=== PATIENT | female | born 1955 | race Caucasian/White ===

== ENCOUNTER → 2019-12-28 | Outpatient (CLI) | payer OTHER ==
--- NOTE | 2019-12-30 14:27 | Diagnostic Imaging Report ---
INDICATION: Routine screening. Comparison is made with prior mammogram from 09/30/2017. 2-D and 3-D bilateral screening mammography was performed with CAD. Scattered fibroglandular densities are identified bilaterally. A lobulated density in the central right breast has increased in size since prior exam. There is an adjacent biopsy marker. The left breast is unremarkable. Axillae are unremarkable. IMPRESSION: BI-RADS 0 Enlarging lobulated nodule in the central right breast. Additional views and ultrasound are recommended for further evaluation. ACR BI-RADS Category 0: Incomplete. (Needs additional imaging evaluation). Result letter will be mailed to the patient. Note: At least 10% of breast cancer is not imaged by mammography. Dictated by: Dictated on workstation # [id number]
== END ==
LOC: RAD 10:01
PROVIDERS: ATTEND Nurse Practitioner Family
DX: Z12.31 Encounter for screening mammogram for malignant neoplasm of breast (principal)
CPT/HCPCS: 77063; 77067

== ENCOUNTER → 2020-01-11 | Outpatient (CLI) | payer OTHER ==
--- NOTE | 2020-01-11 12:51 | Diagnostic Imaging Report ---
INDICATION: Right breast density. Correlation made with recent screening study from 12/28/2019 and 09/30/2017. Unilateral right 2-D and 3-D diagnostic mammography was performed including spot compression CC and ML views as well as conventional 90 degree lateral views. There is a persistent lobulated circumscribed mass in the lower and slightly outer right breast 5-6 cm from the nipple. There is an adjacent biopsy clip. No suspicious calcifications are seen. IMPRESSION: BI-RADS 0 Lobulated enlarging nodule lower slightly outer right breast at mid depth. Further evaluation with ultrasound is recommended and will be performed today. ACR BI-RADS Category 0: Incomplete. (Needs additional imaging evaluation). Result letter will be mailed to the patient. Note: At least 10% of breast cancer is not imaged by mammography. Dictated by: Dictated on workstation # [id number]
--- NOTE | 2020-01-11 13:36 | Diagnostic Imaging Report ---
INDICATION: Right breast density. Correlation is made with diagnostic mammogram earlier the same day and screening mammogram from 12/28/2019. Sonographic interrogation of the right breast was performed. There is a lobulated simple appearing cyst at the 8:00 location of the right breast, 5 cm from the nipple. This measures 11 mm 11 mm x 9 mm. This does correspond with the density noted mammographically. No internal vascularity is seen. There is posterior acoustic enhancement. IMPRESSION: BI-RADS 2 Lobulated simple cyst 8:00 location right breast, 5 cm from the nipple, corresponding to the mammographic density. The patient may return to routine annual screening mammography. ACR BI-RADS Category 2: Benign findings. Dictated by: Dictated on workstation # [id number]
== END ==
LOC: RAD 12:24
PROVIDERS: ATTEND Nurse Practitioner Family
DX: N60.01 Solitary cyst of right breast (principal); N63.10 Unspecified lump in the right breast, unspecified quadrant
CPT/HCPCS: 76642; 77065; G0279